=== PATIENT | female | born 1985 ===

== ENCOUNTER 2019-03-20 11:00 | Inpatient (IN) | payer OTHER ==
[~2019-03-20] VITALS: Ht 154.9 cm; Wt 4.1 kg
[~2019-03-20 11:00] MED LIST: PERCOCET 10/6501 TAB PO
[2019-03-20] MEDS ORDERED: IRON18 MG PO (13:41)
[2019-03-20] MEDS ORDERED: PRIMACARE SOFT1 EACH PO (13:41)
== END 2019-03-31 14:00 | disposition home or self-care (01) | DRG 788 ==
LOC: SURH 03-28 11:00 → OB/GYN 03-28 11:00 → O/R 03-28 11:37 → OB/GYN 03-28 16:45
PROVIDERS: ADMIT Obstetrics & Gynecology
PROC: 3E033VJ Introduction of Other Hormone into Peripheral Vein, Percutaneous Approach (ICD-10-PCS; 2019-03-28)
PROC: 4A1HXCZ Monitoring of Products of Conception, Cardiac Rate, External Approach (ICD-10-PCS; 2019-03-28)
PROC: 10D00Z1 Extraction of Products of Conception, Low, Open Approach (ICD-10-PCS; principal; 2019-03-28 16:45)
DX: O82 Encounter for cesarean delivery without indication (principal); O61.0 Failed medical induction of labor; Z3A.38 38 weeks gestation of pregnancy; Z37.0 Single live birth; Z22.330 Carrier of Group B streptococcus